=== PATIENT | male | born 1975 | race Caucasian/White ===

== ENCOUNTER → 2016-07-04 | Outpatient (CLI) | payer OTHER ==
[~2016-07-04] MED LIST: AMOX875T PO; POTATAB13 PO
--- NOTE | 2016-07-04 14:47 | DIAGNOSTIC IMAGING REPORT ---
THYROID ULTRASOUND HISTORY: LOCALIZED Swelling, mass OR LUMP OF NECK STAT COMPARISON: None. FINDINGS: Right lobe: 5.5 x 2.1 x 2.2 cm. No nodules. Left lobe: 5.4 x 1.8 x 1.7 cm. No nodules. Isthmus: 4 mm in thickness. No nodules. IMPRESSION: Normal thyroid ultrasound. Electronically signed by: Oral Murdock M.D. 07/04/2016 2:46 PM Dictated Date/Time: 07/04/2016 2:45 PM
== END | disposition home or self-care (01) ==
LOC: C.ULTR 14:19
PROVIDERS: ATTEND Family Medicine
DX: R22.1 Localized swelling, mass and lump, neck (principal)

== ENCOUNTER 2017-04-01 05:03 | Emergency (ER) | payer OTHER ==
[~2017-04-01] VITALS: Ht 185.4 cm; Wt 131.0 kg
[2017-04-01 05:09] VITALS: TEMP 36.4; Ht 185.4 cm; Wt 131.0 kg
[2017-04-01] MEDS ORDERED: MoRPHine SULFATE 4 MG/ML 1 ML CARP\\VIAL IV STA (05:14)
[2017-04-01] MEDS ORDERED: KETOROLAC TROMETHAMINE 30 MG/ML VIAL IV STA (05:14)
[2017-04-01] MEDS ORDERED: ONDANSETRON INJ 2 MG/ML 2 ML VIAL IV STA (05:14)
[2017-04-01 05:42] LABS: URINE APPEARANCE CLEAR (CLEAR); URINE BILIRUBIN NEG (NEG); URINE COLOR DK YELLOW; URINE EPITHELIAL CELL AUTO >30 /lpf (0-5); URINE NITRITE NEG (NEG); URINE SPECIFIC GRAVITY 1.028 (1.000-1.030); UROBILINOGEN NEG (NEG); ZZUR CULT IF INDIC CLEAN CATCH NO
[2017-04-01 05:44] LABS: BASO % 0.5 %; BASO ABS # 0.04 K/uL (0-0.2); COMPLETE YES; EOS % 2.6 %; HEMATOCRIT 45.2 % (42-52); IG% 0.1 %; LYMPH % 38.4 %; LYMPH ABS # 2.92 K/uL (1.2-3.4); MEAN CELL VOLUME 92.4 fL (80-100); MEAN CORPUSCULAR HEMOGLOBIN 31.3 pg (25-34); MEAN CORPUSCULAR HGB CONC 33.8 g/dl (32-36); MEAN PLATELET VOLUME 11.4 fL (7.4-10.4); NEUT % 47.4 %; PLATELET COUNT 278 K/uL (130-400); RED BLOOD COUNT 4.89 M/uL (4.7-6.1); WHITE BLOOD COUNT 7.61 K/uL (4.8-10.8)
[2017-04-01 05:54] LABS: BUN/CREATININE RATIO 11.6 (10-20); CALCIUM 8.4 mg/dl (8.5-10.1); CREATININE 1.06 mg/dl (0.60-1.40)
[2017-04-01 06:16] LABS: MANUAL MICROSCOPIC REQUIRED? NO; REVIEW REQ? NO
[2017-04-01 06:29] VITALS: BP 130/79; PULSE 65; O2SAT 92
[2017-04-01] MEDS ORDERED: OXYCODONE IR HOME PACK PO ONE (06:30)
[2017-04-01] MEDS ORDERED: ONDANSETRON HOME PACK 4MG OD TAB PO ONE (06:30)
--- NOTE | 2017-04-01 06:54 | EMERGENCY ROOM VISIT NOTE ---
History First contact with patient: 05:12 Chief Complaint: FLANK PAIN Stated Complaint: SEVERE PAIN BACK/SIDE History of Present Illness The patient is a 42 year old male who presents to the Emergency Room with complaints of sudden onset of severe left flank pain that raised to his groin that was 8 out of 10 and now is 2 out of 10. He has a history of kidney stone and symptoms feel similar. He follows at Dr. Amanda. He has had lithotripsy in the past. Patient denies chest pain, dyspnea, fever, chills, dysuria, abdominal pain. He did throw up once because the pain. Review of Systems See HPI for pertinent positives & negatives. A total of 10 systems reviewed and were otherwise negative. Past Medical/Surgical History Kidney Stones, appendectomy Social History Smoking Status: Never Smoker Alcohol Use: none Drug Use: none Marital Status: Housing Status: lives with family Occupation Status: employed Current/Historical Medications No Active Prescriptions or Reported Meds Physical Exam Vital Signs Date Time Temp Pulse Resp B/P (MAP) Pulse Ox O2 Delivery O2 Flow Rate FiO2 04/01/17 06:29 65 16 130/79 92 04/01/17 06:05 63 16 124/71 94 Room Air 04/01/17 05:09 36.4 71 18 200/104 97 Room Air Physical Exam VITALS: Vitals are noted on the nurse's note and reviewed by myself. Vital signs hypertensive GENERAL: pleasant male, in no acute distress, nondiaphoretic, well-developed well-nourished. SKIN: Capillary reflex less than 2 seconds. HEENT: Normocephalic. PERRLA. EOMI. Nares patent. Mucous membranes moist. Neck is supple without nuchal rigidity. HEART: Regular rate and rhythm without murmurs gallops or rubs. LUNGS: Clear to auscultation bilaterally without wheezes, rales or rhonchi. No retractions or accessory muscle use. ABDOMEN: Positive bowel sounds x 4. Normal tympanic percussion. Soft, nontender, without masses or organomegaly. Solomon sign negative. No guarding or rebound tenderness. MUSCULOSKELETAL: No gross musculoskeletal defects. No CVA tenderness NEURO: Patient was alert and oriented to person place and time. Normal sensation to light and sharp touch. No focal neurological deficits. Medical Decision & Procedures Laboratory Results 04/01/17 05:20 Red Blood Count 4.89, Mean Corpuscular Volume 92.4, Mean Corpuscular Hemoglobin 31.3, Mean Corpuscular Hemoglobin Concent 33.8, Mean Platelet Volume 11.4, Neutrophils (%) (Auto) 47.4, Lymphocytes (%) (Auto) 38.4, Monocytes (%) (Auto) 11.0, Eosinophils (%) (Auto) 2.6, Basophils (%) (Auto) 0.5, Neutrophils # (Auto ) 3.60, Lymphocytes # (Auto) 2.92, Monocytes # (Auto) 0.84, Eosinophils # (Auto ) 0.20, Basophils # (Auto) 0.04 04/01/17 05:20 Test 04/01/17 05:20 White Blood Count 7.61 K/uL (4.8-10.8) Red Blood Count 4.89 M/uL (4.7-6.1) Hemoglobin 15.3 g/dL (14.0-18.0) Hematocrit 45.2 % (42-52) Mean Corpuscular Volume 92.4 fL (80-100) Mean Corpuscular Hemoglobin 31.3 pg (25-34) Mean Corpuscular Hemoglobin Concent 33.8 g/dl (32-36) Platelet Count 278 K/uL (130-400) Mean Platelet Volume 11.4 fL (7.4-10.4) Neutrophils (%) (Auto) 47.4 % Lymphocytes (%) (Auto) 38.4 % Monocytes (%) (Auto) 11.0 % Eosinophils (%) (Auto) 2.6 % Basophils (%) (Auto) 0.5 % Neutrophils # (Auto) 3.60 K/uL (1.4-6.5) Lymphocytes # (Auto) 2.92 K/uL (1.2-3.4) Monocytes # (Auto) 0.84 K/uL (0.11-0.59) Eosinophils # (Auto) 0.20 K/uL (0-0.5) Basophils # (Auto) 0.04 K/uL (0-0.2) RDW Standard Deviation 44.8 fL (36.4-46.3) RDW Coefficient of Variation 13.2 % (11.5-14.5) Immature Granulocyte % (Auto) 0.1 % Immature Granulocyte # (Auto) 0.01 K/uL (0.00-0.02) Urine Color DK YELLOW Urine Appearance CLEAR (CLEAR) Urine pH 5.0 (4.5-7.5) Urine Specific [place] 1.028 (1.000-1.030) Urine Protein TRACE (NEG) Urine Glucose (UA) NEG (NEG) Urine Ketones TRACE (NEG) Urine Occult Blood 3+ (NEG) Urine Nitrite NEG (NEG) Urine Bilirubin NEG (NEG) Urine Urobilinogen NEG (NEG) Urine Leukocyte Esterase NEG (NEG) Urine WBC (Auto) 5-10 /hpf (0-5) Urine RBC (Auto) >30 /hpf (0-4) Urine Hyaline Casts (Auto) 5-10 /lpf (0-5) Urine Epithelial Cells (Auto) >30 /lpf (0-5) Urine Bacteria (Auto) NEG (NEG) Anion Gap 7.0 mmol/L (3-11) Est Creatinine Clear Calc Drug Dose 128.8 ml/min Estimated GFR () 99.8 Estimated GFR (Non- 86.1 BUN/Creatinine Ratio 11.6 (10-20) Calcium Level 8.4 mg/dl (8.5-10.1) Medications Administered Medications (Trade) Dose Ordered Sig/Ashley Route Start Time Stop Time Status Last Admin Dose Admin Ketorolac Tromethamine (Toradol Inj) 30 mg NOW STAT IV 04/01/17 05:14 04/01/17 05:16 DC 04/01/17 05:28 30 MG Ondansetron HCl (Zofran Inj) 4 mg NOW STAT IV 04/01/17 05:14 04/01/17 05:16 DC 04/01/17 05:27 4 MG Morphine Sulfate (MoRPHine SULFATE INJ) 4 mg NOW STAT IV 04/01/17 05:14 04/01/17 05:16 DC 04/01/17 05:29 4 MG Oxycodone HCl (Roxicodone Immediate Rel 5MG Home Pack) 1 homepack UD ONCE PO 04/01/17 06:30 04/01/17 06:31 DC 04/01/17 06:28 1 HOMEPACK Ondansetron HCl (ZOFRAN ODT 4MG Home Pack) 1 homepack UD ONCE PO 04/01/17 06:30 04/01/17 06:31 DC 04/01/17 06:29 1 HOMEPACK ED Course Prior records/ancillary studies reviewed. Triage Nursing notes reviewed. Additional history obtained from the family. The patient's history was concerning for left flank pain. Differential diagnosis: Etiologies such as renal colic, appendicitis, diverticulitis, mesenteric ischemia, aortic pathology, infections, inflammatory bowel disease, PUD, biliary pathology, UTI, as well as others were entertained. Physical examination findings: As above. ER treatment provided: Morphine, Toradol, Zofran On reassessment the patient felt better. Diagnostic interpretation by me: The labs revealed no leukocytosis. Stable H&H. Urinalysis revealed hematuria. There was no sign of UTI. Imaging studies: Ultrasound with no hydronephrosis (RENAL)RETROPERITON COMP CLINICAL HISTORY: 42 years-old Male presenting with left flank pain, ? stone. TECHNIQUE: Real-time grayscale and limited color Doppler ultrasound imaging of the kidneys and bladder was performed. COMPARISON: CT from 2013. FINDINGS: Right kidney: Normal echogenicity. Right kidney measures 12.2 cm. No hydronephrosis. Focal cortical irregularity at the lower pole suggestive of scarring possibly in the setting of prior infarct, infection, or trauma. 5 mm hyperechogenic focus in the upper pole to interpolar region with twinkling artifact suggestive of a renal calculus. Normal perfusion. Left kidney: Normal echogenicity. Left kidney measures 13.1 cm. Mild pelviectasis. No evidence of hydronephrosis. No convincing evidence of calculus or mass. Normal perfusion. Bladder: Decompressed and incompletely evaluated. Other: Hyperechogenic liver parenchyma suggestive of hepatic steatosis. IMPRESSION: 1. Right renal calculus. Previously noted bilateral nephrolithiasis on CT from 2013 is not as well appreciated on ultrasound. 2. No hydronephrosis. Electronically signed by: Kuldeep Matthew M.D. It appears that the patient has isolated renal colic from a left sided stone that most likely just passed as patient's pain resolves nearly by the time he got to the ER and urinated. Patient's pain was under control. No sign of UTI. He is advised to follow-up with his urologist in a few days or here in the ER sooner for severe pain, vomiting, fevers, worsening signs or symptoms or as needed. Patient did not have acute abdomen on exam. He is well-appearing. By the evaluation outlined above emergent etiologies such as appendicitis, diverticulitis, mesenteric ischemia, aortic pathology, infections, inflammatory bowel disease, PUD, biliary pathology, UTI, as well as others were deemed relatively unlikely. The pt informed about the findings as listed above. All questions were answered and pleased with the treatment. Return instructions were outlined and the patient was discharged in stable condition. Outpatient prescription management: Oxy IR 5mg 1-2 po Q4 hrs prn zofran Referral: The pt was referred to [facility] for follow up care regarding their stone. or The patient was referred back to their primary care physician for follow-up in 2 to 3 days for a recheck of the current condition. case reviewed with my Attending Medical Decision as above [place] Drug Monitoring Program Search Results: patient reviewed within database, no issues identified Medication Reconcilliation Current Medication List: was personally reviewed by me Blood Pressure Screening Patient's blood pressure: Elevated blood pressure Blood pressure disposition: Elevated BP felt to be situational Impression Primary Impression: Left flank pain Additional Impression: Recently passed kidney stone Departure Information Dispostion Home / Self-Care Condition GOOD Prescriptions No Active Prescriptions or Reported Meds Referrals Brie Holden M.D. (PCP) Patient Instructions My [facility] Additional Instructions DO NOT drive, drink alcohol, operate machinery, or perform dangerous activities today. You were given medications in the ER that can affect your ability to safely function or operate a vehicle. Oxycodone Immediate Release (OxyIR) 5mg: Take 1-2 pills every four hours for pain. Avoid alcohol, operating machinery or dangerous equipment, working on ladders or roofs, DRIVING, or situations where being under the influence may be dangerous. It is recommended to use an [id number] stool softener such as Colace, 100mg twice daily while taking this medication to avoid constipation. Zofran 4 mg: Take one every six hours as needed for nausea. Avoid alcohol, operating machinery or dangerous equipment, working on ladders or roofs, DRIVING , or situations where being under the influence may be dangerous. Ibuprofen(Motrin, Advil) may be used for fever or pain. Use 600mg every six hours as needed. Take with food. Avoid using more than 2400mg in a 24 hour period. Do not use 2400mg per day for more than three consecutive days without physician direction. Prolonged inappropriate use can lead to stomach upset or ulcers. This medication can be taken if you need to drive, work, or perform activities which may be dangerous when taking narcotic pain medication. (AND/OR) Acetaminophen(Tylenol) may be used for fever or pain. Use 1000mg every six hours as needed. Avoid using more than 3000mg in a 24 hour period. This medication can be taken if you need to drive, work, or perform activities which may be dangerous when taking narcotic pain medication. Strain your urine and collect all the stones or debris for the urologists. Rest and avoid strenuous activity until your stone passes and symptoms resolve. Drink plenty of fluids. Continue current medications. Return to the ER for worsening abdominal or back pain, vomiting, fevers, passing out, or as needed. Follow up with your urology in 2-3 days, call for an appointment. Problem Qualifiers
== END 2017-04-01 06:35 | disposition home or self-care (01) ==
LOC: C.EDB 05:04
DX: R10.9 Unspecified abdominal pain (principal); R03.0 Elevated blood-pressure reading, without diagnosis of hypertension; Z87.442 Personal history of urinary calculi